=== PATIENT | female | born 1975 | race Caucasian/White ===

== ENCOUNTER 2016-10-04 16:18 | Emergency (ER) | payer OTHER ==
[~2016-10-04] VITALS: Ht 157.5 cm; Wt 62.6 kg
[~2016-10-04 16:18] MED LIST: FIORICET,ESG1 TABLET PO; FLAGYL500 MG PO
[2016-10-04 17:04] LABS: HEMATOCRIT 40.9 % (36.0-46.0); MCH 29.2 PG (29.0-34.0); MCV 88.3 FL (83-99); PLATELET COUNT 224 K/uL (156-360); RBC DIS.WIDTH-CV 13.7 % (11.8-14.6); RBC DIS.WIDTH-SD 43.5 % (39-53); RED BLOOD COUNT 4.63 M/uL (3.80-5.20); WHITE BLOOD COUNT 4.6 K/uL (4.1-10.2)
[2016-10-04 17:15] LABS: CHLORIDE 103 mEq/L (99-109); POTASSIUM 3.7 mEq/L (3.7-5.4); SODIUM 136 mEq/L (136-147)
[2016-10-04 17:17] LABS: GLUCOSE 91 mg/dL (70-99)
[2016-10-04 17:18] LABS: ANION GAP 15 MEQ/L (2-14)
[2016-10-04 17:21] LABS: GFR ESTIMATE (CALCULATED) > 59 mL/min/
[2016-10-04 17:22] LABS: UREA NITROGEN (BUN) 10 mg/dL (9-23)
[2016-10-04 17:25] LABS: TROP-I INTERPRETATION NEGATIVE; TROPONIN-I < 0.01 ng/mL (0.0-0.30)
[2016-10-04 18:59] LABS: CREATINE KINASE 84 IU/L (1-294)
[2016-10-04 19:40] LABS: TROP-I INTERPRETATION NEGATIVE; TROPONIN-I 0.01 ng/mL (0.0-0.30)
[2016-10-04] MEDS ORDERED: PREDNISONE20 MG PO (21:15)
[2016-10-04] MEDS ORDERED: TESSALON PERLE100 MG PO (21:15)
[2016-10-04] MEDS ORDERED: MOTRIN800 MG PO (21:15)
[2016-10-04] MEDS ORDERED: VENTOLIN HFA18 GM IH (21:16)
[2016-10-04 21:28] VITALS: BP 108/66
== END 2016-10-04 21:48 | disposition home or self-care (01) ==
LOC: EME 16:18
PROVIDERS: Physician Assistant
DX: B34.9 Viral infection, unspecified (principal); R07.89 Other chest pain; J40 Bronchitis, not specified as acute or chronic; E86.0 Dehydration
CPT/HCPCS: 71020; 80048; 82550 91; 84484; 85027; 93005; 94640; 99281; 99284; J1885; J7030; J7512

== ENCOUNTER → 2017-05-22 | Outpatient (CLI) | payer OTHER ==
[~2017-05-22] MED LIST changes: +MOTRIN800 MG PO; +PREDNISONE20 MG PO; +TESSALON PERLE100 MG PO; +VENTOLIN HFA18 GM IH
== END | disposition home or self-care (01) ==
LOC: CDC 12:13
DX: Z01.810 Encounter for preprocedural cardiovascular examination (principal); R94.31 Abnormal electrocardiogram [ECG] [EKG]
CPT/HCPCS: 93000

== ENCOUNTER 2017-06-12 05:20 | Day surgery (SDC) | payer OTHER ==
[~2017-06-12] VITALS: Ht 157.5 cm; Wt 61.2 kg
[~2017-06-12 05:20] MED LIST changes: +XANAX0.25 MG PO
[2017-06-12 06:11] VITALS: BP 123/74
[2017-06-12] MEDS ORDERED: STOOL SOFTENER100 MG PO (09:42)
[2017-06-12] MEDS ORDERED: HYDROCODON-ACE1 EAC7 PO (09:43)
[2017-06-12] MEDS ORDERED: IBUPROFEN800 MG PO (09:43)
[2017-06-12 11:00] VITALS: BP 132/73
[2017-06-12 12:19] VITALS: BP 117/67
[2017-06-12 14:03] VITALS: BP 122/72
[2017-06-12 14:35] VITALS: BP 116/68
== END 2017-06-12 14:43 | disposition home or self-care (01) ==
LOC: SDC 05:20
DX: D25.9 Leiomyoma of uterus, unspecified (principal); N80.0 Endometriosis of uterus; N83.201 Unspecified ovarian cyst, right side; N92.0 Excessive and frequent menstruation with regular cycle; N94.6 Dysmenorrhea, unspecified; F32.81 Premenstrual dysphoric disorder
CPT/HCPCS: 88307; J0131; J0330; J0690; J1100; J1170; J1885; J2250; J2405; J2710; J2765; J3010